=== PATIENT | male | born 1985 | race African-American/Black ===

== ENCOUNTER 2022-03-16 09:39 | Emergency (ER) | payer OTHER, SELFPAY ==
[2022-03-16 09:49] VITALS: BP 148/90; PULSE 83; RESP 16; TEMP 37.4; O2SAT 100
[2022-03-16 09:56] VITALS: BP 148/90; PULSE 83; RESP 16; TEMP 37.4; O2SAT 100
--- NOTE | 2022-03-16 10:00 | ED.EAR ---
HPI - Ear Problem General Chief complaint: Ear Stated complaint: TOOTHACHE/EARACHE Time Seen by Provider: 03/16/22 09:53 Source: patient Mode of arrival: ambulatory Limitations: no limitations History of Present Illness HPI Narrative: 37 y/o male presented for c/o right ear pain for one week. Pain is sharp and radiates to the lower gum. Endorses mild tinnitus, and recent sinus congestion. Denies decreased hearing, drainage, dizziness, nausea, vomiting, fever or chills. Taking motrin, hydrocodone and orajel for symptoms. 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 MD Complaint: ear pain Related Data Allergies Allergy/AdvReac Type Severity Reaction Status Date / Time Mushroom Allergy Unknown Rash Uncoded 03/16/22 09:47 Review of Systems Review of Systems: CONSTITUTIONAL: Denies malaise, chills, or fever. EYES: Denies visual changes, redness, or discharge. ENT: Denies rhinorrhea, congestion, sinus pain, and sore throat. Reports ear pain CARDIOVASCULAR: Denies chest pain, palpitations, or edema. RESPIRATORY: Denies cough or dyspnea. GASTROINTESTINAL: Denies abdominal pain, nausea, vomiting, diarrhea SKIN: Denies rash or itching. MUSCULOSKELETAL: Denies myalgia. NEUROLOGIC: Denies headache. All systems reviewed & are unremarkable except as noted in HPI and below PMFSH Comments At time of signature, agree with nursing past medical, surgical, social and family history. There is no relevant family history pertinent to the presenting complaint Exam Narrative: GENERAL: Well-appearing, well-nourished, and in no acute distress. EYES: conjunctivae clear ENT: Nares clear. Mucous membranes moist. Left TM pearly [place]ham with light reflex; Right TM unable to visualize due to impacted cerumen; no tragal tenderness. Oropharynx not erythematous without lesions. Right upper tooth #2 broken. No apparent injury or gum swelling to right lower gum. no drooling, erythema, hoarseness, no trismus; uvula midline. NECK: Supple. No lymphadenopathy CHEST: Clear to auscultation, breath sounds equal. HEART: Regular rate and rhythm. No murmur heard. SKIN: Warm, dry, no rash. NEURO: Alert Course Course Emergency Course: Patient is aware of diagnosis, understands and agrees to treatment plan. Anticipatory guidance given. Patient agrees to follow-up as directed and is aware of reasons to seek care at the emergency department. Portions of this record may have been created with voice recognition software Level of Care: Express Care Visit Vital Signs Vital signs: Vital Signs Temperature 99.4 F 03/16/22 09:49 Pulse Rate 83 03/16/22 09:49 Respiratory Rate 16 03/16/22 09:49 Blood Pressure 148/90 H 03/16/22 09:49 Pulse Oximetry 100 03/16/22 09:49 Temperature 99.4 F 03/16/22 09:56 Pulse Rate 83 03/16/22 09:56 Respiratory Rate 16 03/16/22 09:56 Blood Pressure 148/90 H 03/16/22 09:56 Pulse Oximetry 100 03/16/22 09:56 Reviewed Procedures Ear Wax Removal Right Ear: Cerumenolytic Used: other (hydrogen peroxide, warm water) Results: Re-examined: some cerumen remains TM Examination: other (unable to visualize due to the remaining cerumen) Ear Canal Exam: atraumatic Patient Tolerated Procedure: well and no complications Technique: ear canal irrigated and ear canal curetted Additional Comments: Patient reported pain when touching the hardened wax, multiple attempts to remove without success. Small amount removed and appears that it was moved which reduced the patient's pain. Unable to tolerate further attempts at removal. will provide rx abx as unable to visualize TM. Medical Decision Making MDM Narrative Medical decision making narrative: Advised supportive measures and signs/symptoms to go to the ER. Patient is appropriate for outpatient treatment and follow-up. Differential Diagnosis Differential Diagnosis: Coron
== END 2022-03-16 10:26 | disposition home or self-care (01) ==
PROVIDERS: Emergency Provider Nurse Practitioner Family
DX: H61.21 Impacted cerumen, right ear (principal)
CPT/HCPCS: 69210; 99203; G0463

== ENCOUNTER 2022-12-02 19:20 | Emergency (ER) | payer SELFPAY ==
--- NOTE | ~2022-12-02 | XR_ITS ---
EXAMINATION: XR foot LT min 3V DATE: 12/02/2022 19:43 INDICATION: Left foot injury and pain. TECHNIQUE: 4 views of left foot were obtained. COMPARISON: None. FINDINGS: There is mild focus. No fracture. There is mild osteoarthritis of first metatarsophalangeal joint and some of the interphalangeal joints. There is mild osteoarthritis of talonavicular joint. IMPRESSION: 1. Mild polyarticular osteoarthritis. 2. Mild hallux valgus. Reviewed, dictated and finalized at location E.
[2022-12-02 19:22] VITALS: BP 161/91; PULSE 89; RESP 14; TEMP 36.4; O2SAT 100
--- NOTE | 2022-12-02 19:56 | ED.GENADULT ---
HPI - General Adult General Chief complaint: Extremity Injury, Lower Stated complaint: left foot injury Time Seen by Provider: 12/02/22 19:28 History of Present Illness HPI narrative: 37-year-old male presented ED for evaluation of left foot pain. Patient was working with a car today and the car rolled over his left foot. Patient denies any other pain or injury. Related Data Allergies Allergy/AdvReac Type Severity Reaction Status Date / Time Mushroom Allergy Unknown Rash Uncoded 03/16/22 09:47 Review of Systems Review of Systems: All systems reviewed & are unremarkable except as noted in HPI and below Exam Narrative: APPEARANCE: Well appearing, no pain, no distress, well-nourished. HEAD: normocephalic, atraumatic. EYES: PERRLA/EOMI, conjunctivae clear. NOSE: Normal no drainage NECK: Supple. No adenopathy, no masses. RESPIRATORY: Airway patent, respirations nonlabored. Clear to auscultation bilaterally, no rales, rhonchi, wheezing. CARDIOVASCULAR: Regular rate and rhythm without murmurs rubs or gallops. ABDOMINAL: Soft, nontender, nondistended, normal bowel sounds MUSCULOSKELETAL: Tenderness to left foot with no edema or ecchymosis or deformity NEURO: Alert. Cranial nerves II through XII intact. Grossly intact SKIN: Warm, dry. Normal Color Course Course Emergency Course: 37-year-old male presented emerged department for evaluation of left foot pain. X-ray shows no acute fracture dislocations. Patient was within the results of the work-up and was advised to take Tylenol and ibuprofen for pain control. Vital Signs Vital signs: Vital Signs Temperature 97.6 F 12/02/22 19:22 Pulse Rate 89 12/02/22 19:22 Respiratory Rate 14 12/02/22 19:22 Blood Pressure 161/91 H 12/02/22 19:22 Pulse Oximetry 100 12/02/22 19:22 Oxygen Delivery Room Air 12/02/22 19:22 Temperature 97.6 F 12/02/22 19:22 Pulse Rate 89 12/02/22 19:22 Respiratory Rate 14 12/02/22 19:22 Blood Pressure 161/91 H 12/02/22 19:22 Pulse Oximetry 100 12/02/22 19:22 Oxygen Delivery Room Air 12/02/22 19:22 Medical Decision Making Vital Signs Vital Signs: Vital Signs Temperature 97.6 F 12/02/22 19:22 Pulse Rate 89 12/02/22 19:22 Respiratory Rate 14 12/02/22 19:22 Blood Pressure 161/91 H 12/02/22 19:22 Pulse Oximetry 100 12/02/22 19:22 Oxygen Delivery Room Air 12/02/22 19:22 Temperature 97.6 F 12/02/22 19:22 Pulse Rate 89 12/02/22 19:22 Respiratory Rate 14 12/02/22 19:22 Blood Pressure 161/91 H 12/02/22 19:22 Pulse Oximetry 100 12/02/22 19:22 Oxygen Delivery Room Air 12/02/22 19:22 Imaging Data Radiologist's impression: Impressions Foot X-Ray 12/02/22 19:49 IMPRESSION: 1. Mild polyarticular osteoarthritis. 2. Mild hallux valgus. Discharge Plan Discharge Clinical Impression: Acute foot pain Patient Disposition: Home, Self-Care Condition: Stable Instructions: Antibiotic Form, Foot Contusion (ED) Additional Instructions: Tylenol and ibuprofen for pain control. Ice as needed. Have close follow-up with your primary care physician. Prescriptions: No Action penicillin V potassium 500 mg tablet 500 mg PO Q12H 10 Days Qty: 20 0RF Follow-up/Referrals: PHYSICIAN,[employer]PERATOR [Primary Care Provider] - Stand Alone Forms: Work/School Release IP
== END 2022-12-02 20:12 | disposition home or self-care (01) ==
PROVIDERS: Emergency Provider Emergency Medicine
DX: S99.922A Unspecified injury of left foot, initial encounter (principal); M19.072 Primary osteoarthritis, left ankle and foot; M20.12 Hallux valgus (acquired), left foot; V03.00XA Pedestrian on foot injured in collision with car, pick-up truck or van in nontraffic accident, initial encounter
CPT/HCPCS: 73630; 99283